=== PATIENT | female | born 2000 | race Two or more races ===

== ENCOUNTER 2022-07-01 23:25 | Emergency (ER) | payer OTHER ==
[~2022-07-01] VITALS: Ht 160 cm; Wt 63.0 kg
[2022-07-02] MEDS ORDERED: VISTARIL50 MG PO (03:31)
== END 2022-07-02 03:59 | disposition home or self-care (01) ==
LOC: EMR PED 23:25 → ER 23:48 → EMR PED 23:48 → ER 07-02 03:59
DX: R00.2 Palpitations (principal); F41.9 Anxiety disorder, unspecified

== ENCOUNTER 2023-02-02 20:19 | Emergency (ER) | payer OTHER ==
[~2023-02-02] VITALS: Ht 160 cm; Wt 61.2 kg
[~2023-02-02 20:19] MED LIST: ACETAMINOPHEN650 M2; VISTARIL50 MG PO
== END 2023-02-02 22:00 | disposition home or self-care (01) ==
LOC: EMR PED 20:19
DX: R30.0 Dysuria (principal)

== ENCOUNTER 2023-08-02 17:48 | Emergency (ER) | payer OTHER ==
[~2023-08-02] VITALS: Ht 160 cm; Wt 64.9 kg
== END 2023-08-02 20:50 | disposition home or self-care (01) ==
LOC: ER 17:48
DX: L50.9 Urticaria, unspecified (principal)

== ENCOUNTER 2024-08-26 22:35 | Emergency (ER) | payer OTHER ==
[~2024-08-26] VITALS: Ht 160 cm; Wt 68.0 kg
[~2024-08-26 22:35] MED LIST changes: +XYZAL5 MG PO
[2024-08-27] MEDS ORDERED: 0.9 % SODIUM CHLORIDE 1,000 ML IV STA (00:49)
[2024-08-27 01:14] LABS: HEMATOCRIT 37.4 % (36.0-45.00); HEMOGLOBIN 12.8 g/dL (12.0-15.00); MEAN CELL VOLUME 86.1 fL (80.00-100.00); MEAN CORPUSCULAR HEMOGLOBIN 29.5 pg (27.00-32.0); MEAN CORPUSCULAR HGB CONC 34.3 g/dl (32.0-36.0); PLATELET COUNT 355 K/uL (150-450); RED BLOOD COUNT 4.34 M/uL (4.00-6.00); RED CELL DISTRIBUTION WIDTH 13.5 % (11.5-14.5)
== END 2024-08-27 03:52 | disposition home or self-care (01) ==
LOC: ER 22:37
DX: O26.899 Other specified pregnancy related conditions, unspecified trimester (principal); R10.2 Pelvic and perineal pain

== ENCOUNTER 2024-09-12 09:07 | Outpatient (CLI) | payer OTHER | END 2024-09-12 09:10 | disposition home or self-care (01) | LOC: PRENATAL 09:07 | PROVIDERS: ATTEND Obstetrics & Gynecology Maternal & Fetal Medicine | DX: O36.80X0 Pregnancy with inconclusive fetal viability, not applicable or unspecified (principal); Z36.82 Encounter for antenatal screening for nuchal translucency; Z3A.13 13 weeks gestation of pregnancy ==

== ENCOUNTER 2024-09-16 18:02 | Emergency (ER) | payer OTHER ==
[~2024-09-16] VITALS: Ht 160 cm; Wt 66.2 kg
[2024-09-16 18:25] VITALS: BP 90/60; O2SAT 99
[2024-09-16 20:40] LABS: HEMATOCRIT 35.6 % (36.0-45.00); HEMOGLOBIN 12.2 g/dL (12.0-15.00); MEAN CORPUSCULAR HEMOGLOBIN 29.5 pg (27.00-32.0); MEAN CORPUSCULAR HGB CONC 34.3 g/dl (32.0-36.0); PLATELET COUNT 331 K/uL (150-450); RED BLOOD COUNT 4.14 M/uL (4.00-6.00); RED CELL DISTRIBUTION WIDTH 13.3 % (11.5-14.5)
[2024-09-16 21:31] LABS: PH,URINE 6.5 (5.0-8.0); URINE APPEARANCE Clear; URINE BILIRRUBIN Negative (NEGATIVE); URINE BLOOD Moderate; URINE COLOR Yellow; URINE GLUCOSE Negative (NEGATIVE); URINE LEUKOCYTE Moderate; URINE NITRATE Negative; URINE PROTEIN Negative (NEGATIVE); URINE UROBILINOGEN 0.2 E.U./dl
[2024-09-16 21:35] LABS: URINE BACTERIA 261.9 uL (0.0-1933); URINE RBC 775.9 uL (0.0-20.8)
[2024-09-16 22:07] LABS: URINE CAST 0.14 uL (0.0-1.40); URINE KETONE 80 (NEGATIVE)
[2024-09-16 22:08] LABS: URINE MUCUS SCANT
[2024-09-16] MEDS ORDERED: CEFTRIAXONE SODIUM 1,000 MG VIAL IM ONE (22:15)
[2024-09-16] MEDS ORDERED: CEFTRIAXONE SODIUM 1,000 MG VIAL ONE (22:50)
[2024-09-16] MEDS ORDERED: DUI500 PO (22:56)
[2024-09-18] MEDS ORDERED: PRENATAL + DHA1 EAC1 PO (20:10)
== END 2024-09-17 00:35 ==
LOC: ER 18:05
PROVIDERS: Emergency Medicine
DX: O23.40 Unspecified infection of urinary tract in pregnancy, unspecified trimester (principal); R10.2 Pelvic and perineal pain; Z3A.14 14 weeks gestation of pregnancy

== ENCOUNTER 2024-09-18 19:49 | Emergency (ER) | payer OTHER ==
[~2024-09-18] VITALS: Ht 160 cm; Wt 66.2 kg
[~2024-09-18 19:49] MED LIST changes: +DUI500 PO
[2024-09-18] MEDS ORDERED: PRENATAL + DHA1 EAC1 PO (20:10)
[2024-09-18] MEDS ORDERED: ACETAMINOPHEN 500 MG GEL..CAP PO ONE (20:20)
[2024-09-18 23:53] LABS: HEMATOCRIT 32.9 % (36.0-45.00); HEMOGLOBIN 11.6 g/dL (12.0-15.00); MEAN CELL VOLUME 85.1 fL (80.00-100.00); MEAN CORPUSCULAR HEMOGLOBIN 30.1 pg (27.00-32.0); MEAN CORPUSCULAR HGB CONC 35.4 g/dl (32.0-36.0); PLATELET COUNT 308 K/uL (150-450); RED BLOOD COUNT 3.86 M/uL (4.00-6.00); RED CELL DISTRIBUTION WIDTH 13.6 % (11.5-14.5)
[2024-09-19] MEDS ORDERED: OSEL75CA PO (03:20)
[2024-09-19] MEDS ORDERED: ZYRTEC10 M3 PO (03:20)
== END 2024-09-19 03:37 ==
LOC: ER 19:52
PROVIDERS: Preventive Medicine Public Health & General Preventive Medicine
DX: O26.892 Other specified pregnancy related conditions, second trimester (principal); B34.9 Viral infection, unspecified; Z3A.14 14 weeks gestation of pregnancy; Z20.822 Contact with and (suspected) exposure to COVID-19

== ENCOUNTER → 2024-10-29 07:56 | Outpatient (CLI) | payer OTHER ==
[~2024-10-29 07:56] MED LIST changes: +OSEL75CA PO; +PRENATAL + DHA1 EAC1 PO; +ZYRTEC10 M3 PO
== END | disposition home or self-care (01) ==
LOC: PRENATAL 07:56
PROVIDERS: ATTEND Obstetrics & Gynecology Maternal & Fetal Medicine
DX: O44.00 Complete placenta previa NOS or without hemorrhage, unspecified trimester (principal); Z3A.20 20 weeks gestation of pregnancy

== ENCOUNTER 2024-11-19 22:46 | Emergency (ER) | payer OTHER ==
[~2024-11-19] VITALS: Ht 160 cm; Wt 61.2 kg
[2024-11-20] MEDS ORDERED: GUAIFENESIN 200 MG/10 ML BLIST.PACK PO STA (01:01)
[2024-11-20] MEDS ORDERED: ACETAMINOPHEN 500 MG GEL..CAP PO STA (01:02)
[2024-11-20 01:26] LABS: HEMATOCRIT 34.4 % (36.0-45.00); MEAN CELL VOLUME 87.5 fL (80.00-100.00); MEAN CORPUSCULAR HEMOGLOBIN 30.4 pg (27.00-32.0); MEAN CORPUSCULAR HGB CONC 34.7 g/dl (32.0-36.0); PLATELET COUNT 349 K/uL (150-450); RED BLOOD COUNT 3.93 M/uL (4.00-6.00); RED CELL DISTRIBUTION WIDTH 13.9 % (11.5-14.5)
== END 2024-11-20 03:14 ==
LOC: ER 22:48
PROVIDERS: General Practice
DX: J06.9 Acute upper respiratory infection, unspecified (principal); T78.40XA Allergy, unspecified, initial encounter; Z20.822 Contact with and (suspected) exposure to COVID-19

== ENCOUNTER 2024-12-19 01:33 | Outpatient (CLI) | payer OTHER ==
[~2024-12-19] VITALS: Ht 160 cm; Wt 70.8 kg
[2024-12-19 01:01] VITALS: BP 109/68
[2024-12-19] MEDS ORDERED: RINGERS SOLUTION,LACTATED 1,000 ML IV SCH (02:00)
[2024-12-19 02:24] LABS: PH,URINE 6.5 (5.0-8.0); URINE APPEARANCE Clear; URINE BILIRRUBIN Negative (NEGATIVE); URINE BLOOD Negative; URINE COLOR Yellow; URINE KETONE Negative (NEGATIVE); URINE LEUKOCYTE Negative; URINE NITRATE Negative; URINE PROTEIN Negative (NEGATIVE)
[2024-12-19 02:26] LABS: HEMATOCRIT 34.2 % (36.0-45.00); HEMOGLOBIN 11.5 g/dL (12.0-15.00); MEAN CELL VOLUME 88.9 fL (80.00-100.00); MEAN CORPUSCULAR HGB CONC 33.7 g/dl (32.0-36.0); PLATELET COUNT 351 K/uL (150-450); RED BLOOD COUNT 3.85 M/uL (4.00-6.00); RED CELL DISTRIBUTION WIDTH 13.4 % (11.5-14.5)
[2024-12-19 02:28] LABS: URINE BACTERIA 41.6 uL (0.0-1933); URINE GLUCOSE 100 MG/DL (NEGATIVE); URINE RBC 3.8 uL (0.0-20.8); URINE WBC 18.5 uL (0.0-23.2)
[2024-12-19 03:35] VITALS: BP 100/64
[2024-12-19 06:19] VITALS: BP 101/64; O2SAT 99
[2024-12-19 11:31] VITALS: BP 90/60; O2SAT 100
[2024-12-19 13:55] VITALS: BP 90/60
== END 2024-12-19 13:55 | disposition home or self-care (01) ==
LOC: OBS/DEL 01:33
PROVIDERS: ATTEND Obstetrics & Gynecology
DX: O36.8130 Decreased fetal movements, third trimester, not applicable or unspecified (principal); O26.849 Uterine size-date discrepancy, unspecified trimester; O36.8199 Decreased fetal movements, unspecified trimester, other fetus; O60.00 Preterm labor without delivery, unspecified trimester; Z3A.28 28 weeks gestation of pregnancy

== ENCOUNTER 2025-01-23 15:05 | Outpatient (CLI) | payer OTHER | END 2025-01-23 15:06 | disposition home or self-care (01) | LOC: PRENATAL 15:05 | PROVIDERS: ATTEND Obstetrics & Gynecology Maternal & Fetal Medicine | DX: O26.849 Uterine size-date discrepancy, unspecified trimester (principal); O36.8199 Decreased fetal movements, unspecified trimester, other fetus; Z3A.33 33 weeks gestation of pregnancy ==

== ENCOUNTER 2025-03-10 13:15 | Inpatient (IN) | payer OTHER ==
[~2025-03-10] VITALS: Ht 160 cm; Wt 3.2 kg
[2025-03-14 17:00] VITALS: BP 110/79
[2025-03-14] MEDS ORDERED: MISOPROSTOL 25 MCG TABLET VAG ONE (17:00)
[2025-03-14 19:26] VITALS: BP 123/75
[2025-03-14] MEDS ORDERED: CEFOXITIN SODIUM 2,000 MG VIAL IV ONE (23:15)
[2025-03-14] MEDS ORDERED: OXYTOCIN 10 UNIT/ML (10ML) IV ONE (23:15)
[2025-03-14] MEDS ORDERED: KETOROLAC TROMETHAMINE 60 MG VIAL IM STA (23:19)
[2025-03-14] MEDS ORDERED: CHLORHEXIDINE GLUCONATE 120 ML BOTTLE TP SCH (23:30)
[2025-03-14] MEDS ORDERED: RINGERS SOLUTION,LACTATED 1,000 ML IV SCH (23:30)
[2025-03-14] MEDS ORDERED: ERYTHROMYCIN BASE OPHT 1GM EACH TUBE OP ONE (23:30)
[2025-03-14] MEDS ORDERED: OXYTOCIN 1,000 ML IV SCH (23:30)
[2025-03-15] MEDS ORDERED: MORPHINE SULFATE 4 MG/ML VIAL IV SCH (01:00)
[2025-03-15 02:10] VITALS: BP 110/61
[2025-03-15 02:21] LABS: BASO % 0.3 % (0.1-1.2); EOS # 0.09 (0.04-0.54); EOS % 0.5 % (0.7-7.0); LYMPH # 1.10 (1.18-3.74); LYMPH % 6.2 % (19.3-53.1); MEAN PLATELET VOLUME 9.90 fl (9.4-12.4); MONO # 1.03 (0.24-0.82); MONO % 5.8 % (4.7-12.5); NEUT # 15.46 (1.56-6.13); NEUT % 86.7 % (34.0-71.1); RED CELL DISTRIBUTION WIDTH 13.6 % (11.6-14.4)
[2025-03-15 08:27] VITALS: BP 116/69
[2025-03-15] MEDS ORDERED: ACETAMINOPHEN 325 MG TABLET PO PRN (09:00)
[2025-03-15] MEDS ORDERED: OxyCODONE HCL 5 MG TABLET (ROXICODONE) PO SCH (09:00)
[2025-03-15 12:30] VITALS: BP 130/70
[2025-03-15 16:00] VITALS: BP 102/67
[2025-03-15 21:06] VITALS: BP 110/72
[2025-03-15 23:33] VITALS: BP 101/66
[2025-03-16 05:09] VITALS: BP 102/66
[2025-03-16 08:00] VITALS: BP 109/71
[2025-03-16 13:54] VITALS: BP 107/71
[2025-03-16 23:54] VITALS: BP 104/63
[2025-03-17 04:00] VITALS: BP 101/65
[2025-03-17 09:01] VITALS: BP 110/73
== END 2025-03-17 11:48 | disposition home or self-care (01) | DRG 788 ==
LOC: LDR 03-14 16:39 → OB/GYN 03-14 16:39
PROVIDERS: Obstetrics & Gynecology; ADMIT Obstetrics & Gynecology; ATTEND Obstetrics & Gynecology
PROC: 3E033VJ Introduction of Other Hormone into Peripheral Vein, Percutaneous Approach (ICD-10-PCS; 2025-03-14)
PROC: 3E0P7VZ Introduction of Hormone into Female Reproductive, Via Natural or Artificial Opening (ICD-10-PCS; 2025-03-14)
PROC: 4A1HXCZ Monitoring of Products of Conception, Cardiac Rate, External Approach (ICD-10-PCS; 2025-03-14)
PROC: 10D00Z1 Extraction of Products of Conception, Low, Open Approach (ICD-10-PCS; principal; 2025-03-14 21:00)
DX: O42.02 Full-term premature rupture of membranes, onset of labor within 24 hours of rupture (principal); O62.0 Primary inadequate contractions; Z3A.39 39 weeks gestation of pregnancy; Z37.0 Single live birth

== ENCOUNTER 2025-03-14 11:54 | Outpatient (CLI) | payer OTHER ==
[~2025-03-14] VITALS: Ht 160 cm; Wt 78.0 kg
[2025-03-14 10:54] VITALS: BP 110/79
[2025-03-14 13:04] LABS: BASO % 0.7 % (0.1-1.2); EOS # 0.54 (0.04-0.54); EOS % 4.8 % (0.7-7.0); LYMPH # 1.56 (1.18-3.74); LYMPH % 14.0 % (19.3-53.1); MEAN PLATELET VOLUME 9.90 fl (9.4-12.4); MONO # 0.94 (0.24-0.82); MONO % 8.4 % (4.7-12.5); NEUT # 7.95 (1.56-6.13); NEUT % 71.4 % (34.0-71.1); RED CELL DISTRIBUTION WIDTH 13.7 % (11.6-14.4)
[2025-03-14 13:05] LABS: URINE APPEARANCE Clear; URINE BILIRRUBIN Negative (NEGATIVE); URINE BLOOD Negative; URINE COLOR Yellow; URINE GLUCOSE Negative (NEGATIVE); URINE KETONE Negative (NEGATIVE); URINE LEUKOCYTE Trace; URINE NITRATE Negative; URINE PROTEIN Trace (NEGATIVE); URINE UROBILINOGEN 1.0 E.U./dl
[2025-03-14 13:08] LABS: URINE BACTERIA 29.9 uL (0.0-1933); URINE EPITHELIAL CELLS 7.6 uL (0.0-38.8); URINE RBC 9.0 uL (0.0-20.8); URINE WBC 25.0 uL (0.0-23.2)
[2025-03-14 13:09] LABS: URINE CAST 0.14 uL (0.0-1.40)
[2025-03-14] MEDS ORDERED: RINGERS SOLUTION,LACTATED 1,000 ML IV SCH (13:15)
[2025-03-14 13:23] LABS: INR 0.96
[2025-03-14 15:15] VITALS: BP 112/66
== END 2025-03-14 16:39 | disposition still patient (30) ==
LOC: OBS/DEL 11:54
PROVIDERS: Obstetrics & Gynecology; ATTEND Obstetrics & Gynecology
DX: O26.893 Other specified pregnancy related conditions, third trimester (principal)